=== PATIENT | male | born 1985 | race Caucasian/White ===

== ENCOUNTER 2017-07-11 03:08 | Emergency (ER) | payer SELFPAY ==
[2017-07-11 04:06] LABS: Absolute Lymphocytes (CBC) 2.4 K/uL (0.7-4.9); Absolute Monocytes 0.5 K/uL (0.1-1.3); Absolute Neutrophil 7.2 K/uL (1.8-8.0); Basophils % 0.8 % (0-1.3); Eosinophils % 7.1 % (0-4.4); Hematocrit 42.1 % (39.6-49.0); Lymphocytes % 21.9 % (15.3-44.8); MCH 26.2 pg (27.0-35.0); MCV 80.2 fL (80-100); MPV 7.5 fL (7.6-11.3); Monocytes % 4.4 % (3.3-12.3); RBC Red Blood Cell Count 5.25 M/uL (4.33-5.43)
[2017-07-11 04:16] LABS: Protime INR 1.08
[2017-07-11 04:29] LABS: Bicarbonate 29 mEq/L (21-31); Glucose Level 125 mg/dL (65-120); Potassium 3.6 mEq/L (3.6-5.0); Sodium Level 138 mEq/L (135-145)
[2017-07-11 04:35] LABS: ALT/SGPT 72 IU/L (10-60); AST/SGOT 46 IU/L (10-42); Albumin 4.3 g/dL (3.2-5.5); Alkaline Phosphatase 58 IU/L (42-121); BUN Blood Urea Nitrogen 17 mg/dL (6-20); Bilirubin Direct 0.1 mg/dL (0-0.2); Bilirubin Total 0.2 mg/dL (0.3-1.2); Creatine Phosphokinase 136 IU/L (22-269); Magnesium 1.7 mg/dL (1.8-2.5); Protein, Total 8.2 g/dL (6.0-8.3)
[2017-07-11 04:38] LABS: CKMB Creatine Kinase MB 1.5 ng/ml (0.3-4.0)
[2017-07-11 05:18] LABS: Barbiturates NEGATIVE; Benzodiazepines NEGATIVE; Cocaine NEGATIVE; METHAMPHETAM NEGATIVE; Opiates NEGATIVE; Phencyclidine NEGATIVE; THC Cannibis NEGATIVE
[2017-07-11] MEDS ORDERED: MAGNESIUM OXIDE 400 MG TAB ONE (05:31)
--- NOTE | 2017-07-11 05:32 | ER ---
Nurse's Notes [facility] Name: Alexis Velasco Age: 32 yrs Sex: Male : 1985 Arrival Date: 07/11/2017 Time: 03:12 Bed 20 Private MD: Diagnosis: Chest pain. Numbness fingers both hands. Morbid obesity Presentation: 07/11 03:15 Presenting complaint: Patient states: that since he has been having chest pain fc to the left side that does not radiate, it is on and off pain that only lasts seconds when it comes. Denies any shortness of breath, nausea or vomiting. Has left hand numbness since May and right hand numbness since June. Transition of care: patient was not received from another setting of care. Onset of symptoms was May 2017. Initial Sepsis Screen: Does the patient meet any 2 criteria? HR > 90 bpm. Yes Does the patient have a suspected source of infection? No. Patient's initial sepsis screen is negative. Care prior to arrival: Medication(s) given: ASA, 81 mg, x 1, at 0100. 03:15 Method Of Arrival: Ambulatory fc 03:15 Acuity: NOEMI 3 fc - Immunization history:: Last tetanus immunization: unknown. - Social history:: Smoking status: Patient/guardian denies using tobacco, the patient reports quitting approximately 1 years ago. Screenin:32 Abuse screen: Denies threats or abuse. Nutritional screening: No deficits noted. fc Tuberculosis screening: No symptoms or risk factors identified. Fall Risk None identified. Assessment: 03:25 General: Appears in no apparent distress. uncomfortable, Behavior is calm, cooperative, jd3 appropriate for age. Pain: Complains of pain in chest Pain does not radiate. Quality of pain is described as sharp, Pain began suddenly, Is intermittent. Neuro: Level of Consciousness is awake, alert, obeys commands, Oriented to person, place, time, situation. Cardiovascular: Heart tones S1 S2 present. Respiratory: Airway is patent Respiratory effort is even, unlabored, Respiratory pattern is regular, symmetrical, Breath sounds are clear bilaterally. GI: Abdomen is round Bowel sounds present X 4 quads. Patient currently denies diarrhea, nausea, vomiting. : No signs and/or symptoms were reported regarding the genitourinary system. EENT: No signs and/or symptoms were reported regarding the EENT system. Derm: Skin is intact, Skin is dry, Skin is normal, Skin temperature is warm. Musculoskeletal: Circulation, motion, and sensation intact. Range of motion: intact in all extremities. 04:21 Reassessment: Patient appears in no apparent distress at this time. Patient and/or jd3 family updated on plan of care and expected duration. Pain level reassessed. Patient is alert, oriented x 3, equal unlabored respirations, skin warm/dry/pink. 05:13 Reassessment: Patient appears in no apparent distress at this time. Patient and/or jd3 family updated on plan of care and expected duration. Pain level reassessed. Patient is alert, oriented x 3, equal unlabored respirations, skin warm/dry/pink. 05:42 Reassessment: Patient appears in no apparent distress at this time. Patient and/or jd3 family updated on plan of care and expected duration. Pain level reassessed. Patient is alert, oriented x 3, equal unlabored respirations, skin warm/dry/pink. pt reporting understanding of discharge instructions, even and steady gait upon discharge. Vital Signs: 03:15 BP 133 / 77; Pulse 94; Resp 20; Temp 98.0(O); Pulse Ox 97% on R/A; Weight 165.56 kg fc (R); Height 5 ft. 9 in. (175.26 cm) (R); Pain 4/10; 04:21 BP 119 / 69; Pulse 93; Resp 20 S; Pulse Ox 95% on R/A; jd3 05:13 BP 108 / 58; Pulse 74; Resp 19 S; Pulse Ox 94% on R/A; jd3 03:15 Body Mass Index 53.90 (165.56 kg, 175.26 cm) ED Course: 03:12 Patient arrived in ED. al2 03:15 Arm band placed on Patient placed in an exam room, on a stretcher. fc 03:15 Patient has correct armband on for positive identification. Bed in low position. Call light in reach. child monitor on. Pulse ox on. NIBP on. 03:25 Simone Kasper RN is Primary Nurse. jd3 03:31 Triage completed. fc 03:35 Inserted saline lock: 20 gauge in right antecubital area, using aseptic technique. ea Blood collected. 03:36 Jono Gallegos MD is Attending Physician. pkl 04:18 X-ray completed. Portable x-ray completed in exam room. Patient tolerated procedure jw2 well. 04:20 XRAY Chest (1 view) In Process Unspecified. EDMS 04:21 Patient maintains SpO2 saturation greater than 95% on room air. jd3 05:41 No provider procedures requiring assistance completed. IV discontinued, intact, jd3 bleeding controlled, No redness/swelling at site. Pressure dressing applied. Administered Medications: 05:32 Drug: Magnesium Oxide 400 mg Route: PO; jd3 05:32 Follow up: Response: Medication administered at discharge. jd3 Outcome: 05:32 Discharge ordered by . pkl 05:41 Discharged to home ambulatory, with family. jd3 05:41 Condition: stable 05:41 Discharge instructions given to patient, family, Instructed on discharge instructions, follow up and referral plans. medication usage, Demonstrated understanding of instructions, follow-up care, medications, Prescriptions given X 1. 05:42 Patient left the ED. jd3 Signatures: Dispatcher [employer] EDMS Jono Gallegos MD MD pkl Lurdes Santos, RN RN Kiara Angeles jw2 Elisabeth Cordero RN Simone Carmona ea, RN RN dipti Kruger, Rosemary al2
--- NOTE | 2017-07-11 05:33 | EDPHYS ---
Physician Documentation [facility] Name: Alexis Velasco Age: 32 yrs Sex: Male : 1985 Arrival Date: 07/11/2017 Time: 03:12 Bed 20 Private MD: ED Physician Jono Galleogs HPI: 07/11 03:57 This 32 yrs old Male presents to ER via Ambulatory with complaints of Chest pkl Pain, Numbness Of Hand. 03:57 The patient or guardian reports chest pain that is located primarily in the left side pkl chest. The pain does not radiate. Associated signs and symptoms: Pertinent positives: numbness fingers both hands. The chest pain is described as dull. - Immunization history:: Last tetanus immunization: unknown. - Social history:: Smoking status: Patient/guardian denies using tobacco, the patient reports quitting approximately 1 years ago. ROS: 04:09 Eyes: Negative for injury, pain, redness, and discharge, ENT: Negative for injury, pkl pain, and discharge, Neck: Negative for injury, pain, and swelling. 04:09 Cardiovascular: Positive for chest pain. 04:09 Respiratory: Negative for cough, shortness of breath. 04:09 Abdomen/GI: Negative for abdominal pain, nausea, vomiting, and diarrhea. 04:09 Back: Negative for acute changes. 04:09 : Negative for urinary symptoms. 04:09 MS/extremity: Negative for acute changes. 04:09 Skin: Negative for rash. 04:09 Neuro: Negative for altered mental status. Exam: 04:09 Head/Face: Normocephalic, atraumatic. Eyes: Pupils equal round and reactive to light, pkl extra-ocular motions intact. Lids and lashes normal. Conjunctiva and sclera are non-icteric and not injected. Cornea within normal limits. Periorbital areas with no swelling, redness, or edema. ENT: Nares patent. No nasal discharge, no septal abnormalities noted. Tympanic membranes are normal and external auditory canals are clear. Oropharynx with no redness, swelling, or masses, exudates, or evidence of obstruction, uvula midline. Mucous membranes moist. Neck: Trachea midline, no thyromegaly or masses palpated, and no cervical lymphadenopathy. Supple, full range of motion without nuchal rigidity, or vertebral point tenderness. No Meningismus. Chest/axilla: Normal chest wall appearance and motion. Nontender with no deformity. No lesions are appreciated. Cardiovascular: Regular rate and rhythm with a normal S1 and S2. No gallops, murmurs, or rubs. Normal PMI, no JVD. No pulse deficits. Respiratory: Lungs have equal breath sounds bilaterally, clear to auscultation and percussion. No rales, rhonchi or wheezes noted. No increased work of breathing, no retractions or nasal flaring. 04:09 Abdomen/GI: Inspection: obese Bowel sounds: normal, Palpation: abdomen is soft and non-tender, in all quadrants. 04:09 Back: Exam negative for acute changes. 04:09 : Exam negative for acute changes. 04:09 Musculoskeletal/extremity: Exam is negative for acute changes. 04:09 Skin: Exam negative for rash. 04:09 Neuro: Orientation: is normal, Mentation: is normal, Memory: is normal, Cranial nerves: grossly normal, Cerebellar function: is grossly normal, Motor: is normal, Sensation: numbness, that is mild, of the fingers both hands, Gait: is steady. Vital Signs: 03:15 BP 133 / 77; Pulse 94; Resp 20; Temp 98.0(O); Pulse Ox 97% on R/A; Weight 165.56 kg fc (R); Height 5 ft. 9 in. (175.26 cm) (R); Pain 4/10; 04:21 BP 119 / 69; Pulse 93; Resp 20 S; Pulse Ox 95% on R/A; jd3 05:13 BP 108 / 58; Pulse 74; Resp 19 S; Pulse Ox 94% on R/A; jd3 03:15 Body Mass Index 53.90 (165.56 kg, 175.26 cm) MDM: 03:36 Patient medically screened. pkl 05:29 Data reviewed: vital signs, nurses notes, lab test result(s), EKG, radiologic studies, pkl plain films. 07/11 03:51 Order name: Basic Metabolic Panel; Complete Time: 05:25 jd3 07/11 03:51 Order name: BNP; Complete Time: 05:25 jd3 07/11 03:51 Order name: CBC with Diff; Complete Time: 05:25 jd3 07/11 03:51 Order name: Ckmb; Complete Time: 05:25 jd3 07/11 03:51 Order name: CPK; Complete Time: 05:25 jd3 07/11 03:51 Order name: LFT's; Complete Time: 05:25 jd3 07/11 03:51 Order name: Magnesium; Complete Time: 05:25 jd3 07/11 03:51 Order name: PT-INR; Complete Time: 05:25 jd3 07/11 03:51 Order name: Ptt, Activated; Complete Time: 05:25 jd3 07/11 03:51 Order name: Troponin (emerg Dept Use Only); Complete Time: 05:25 jd3 07/11 03:55 Order name: UDS; Complete Time: 05:25 pkl 07/11 04:03 Order name: D-Dimer; Complete Time: 05:25 EDMS 07/11 04:40 Order name: Urine Dipstick--Ancillary (enter results) em1 07/11 03:51 Order name: XRAY Chest (1 view) jd3 07/11 03:51 Order name: EKG; Complete Time: 03:51 jd3 07/11 03:51 Order name: Cardiac monitoring; Complete Time: 03:51 jd3 07/11 03:51 Order name: EKG - Nurse/Tech; Complete Time: 03:51 jd3 07/11 03:51 Order name: IV Saline Lock; Complete Time: 03:51 jd3 07/11 03:51 Order name: Labs collected and sent; Complete Time: 03:52 jd3 07/11 03:51 Order name: O2 Per Protocol; Complete Time: 03:52 jd3 07/11 03:51 Order name: O2 Sat Monitoring; Complete Time: 03:52 jd3 07/11 03:51 Order name: Urine Dipstick-Ancillary (obtain specimen); Complete Time: 04:37 jd3 Administered Medications: 05:32 Drug: Magnesium Oxide 400 mg Route: PO; jd3 05:32 Follow up: Response: Medication administered at discharge. jd3 Disposition: 07/11/17 05:32 Discharged to Home. Impression: Chest pain. Numbness fingers both hands. Morbid obesity. - Condition is Stable. - Prescriptions for Ultram 50 mg Oral Tablet - take 1 tablet by ORAL route every 8 hours As needed; 20 tablet. - Medication Reconciliation Form, Thank You Letter, Antibiotic Education, Prescription Opioid Use, Work release form form. - Follow up: Private Physician; When: 2 - 3 days; Reason: Re-evaluation by your physician. - Problem is new. - Symptoms have improved. Signatures: Dispatcher [employer] [facility] Jono Gallegos MD MD pkl Chretien, Felicia, RN RN fc Simone Kasper RN RN jd3 Corrections: (The following items were deleted from the chart) 04:02 03:56 D-DIMER+COAG.LAB.BRZ ordered. [facility] 05:42 05:32 07/11/2017 05:32 Discharged to Home. Impression: Chest pain. Numbness fingers jd3 both hands. Morbid obesity. Condition is Stable. Forms are Medication Reconciliation Form, Thank You Letter, Antibiotic Education, Prescription Opioid Use. Follow up: Private Physician; When: 2 - 3 days; Reason: Re-evaluation by your physician. Problem is new. Symptoms have improved. pkl
--- NOTE | 2017-07-11 05:46 | EKG ---
Test Date: 2017-07-11 Test Time: 03:38:13 Clammer: VALERIE MEASUREMENT RESULTS: Intervals: Rate: 82 OR: 146 QRSD: 96 QT: 342 QTc: 399 Sunspot: P: 5 OR: 146 QRS: 10 T: 33 INTERPRETIVE STATEMENTS: Normal sinus rhythm with sinus arrhythmia Incomplete right bundle branch block Borderline ECG No previous ECG available for comparison Electronically Signed On 07-11-17 05:46:17 CDT by Bhupendra Schwartz
[2017-07-11 05:47] LABS: Urine Blood TRACE (NEG); Urine Glucose NEGATIVE (NEG); Urine Protein NEGATIVE (NEG); Urine Specific Gravity 1.025 (1.005-1.030); Urine pH 5.5 (5.0-7.0)
--- NOTE | 2017-07-11 12:50 | RAD REPORT ---
EXAM DESCRIPTION: RAD - Chest Single View - 07/11/2017 4:20 am CLINICAL HISTORY: Chest pain. COMPARISON: None. FINDINGS: Portable technique limits examination quality. The lungs are grossly clear. The heart is normal in size. No displaced fractures. IMPRESSION: No acute intrathoracic process suspected.
== END 2017-07-11 05:42 | disposition home or self-care (01) ==
LOC: ER 03:08
DX: R20.0 Anesthesia of skin (principal); E66.01 Morbid (severe) obesity due to excess calories; Z87.891 Personal history of nicotine dependence
CPT/HCPCS: 36415; 71045; 80048; 80076; 80307; 81003; 82550; 82553; 83735; 83880; 84484; 85025; 85379; 85610; 85730; 93005; 99285

== ENCOUNTER 2019-03-21 22:51 | Emergency (ER) | payer SELFPAY ==
--- OUTSIDE RECORDS SUMMARY | 2019-03-21 22:53 | XMS REPORT ---
:1985 [facility] Address [address] [place] [address] [address] [place] [address] Care Team Providers Name Role Phone Unavailable Unavailable Unavailable Problems This patient has no known problems. Allergies, Adverse Reactions, Alerts This patient has no known allergies or adverse reactions. Medications This patient has no known medications.
[2019-03-22 00:05] LABS: Absolute Lymphocytes (CBC) 2.4 K/uL (0.7-4.9); Basophils % 0.6 % (0-1.3); Hematocrit 39.2 % (39.6-49.0); Lymphocytes % 22.9 % (15.3-44.8); MPV 7.3 fL (7.6-11.3); Protime INR 1.07
[2019-03-22 00:23] LABS: ALT/SGPT 66 U/L (12-78); AST/SGOT 30 U/L (15-37); Albumin 3.6 g/dL (3.4-5.0); Alkaline Phosphatase 62 U/L (45-117); BUN Blood Urea Nitrogen 14 mg/dL (7-18); Bicarbonate 28 mmol/L (21-32); Bilirubin Direct < 0.1 mg/dL (0-0.2); Bilirubin Total 0.2 mg/dL (0.2-1.0); Glucose Level 121 mg/dL (74-106); Magnesium 2.1 mg/dL (1.8-2.4); Potassium 3.9 mmol/L (3.5-5.1); Protein, Total 7.8 g/dL (6.4-8.2); Sodium Level 139 mmol/L (136-145); Troponin (Emerg Dept Use Only) < 0.02 ng/mL (0.0-0.045)
[2019-03-22 00:25] LABS: NT PRO-BNP < 5 pg/mL (<125)
--- NOTE | 2019-03-22 00:34 | ER ---
Nurse's Notes [facility] Name: Alexis Velasco Age: 33 yrs Sex: Male : 1985 Arrival Date: 03/21/2019 Time: 22:53 Bed 5 Private MD: Diagnosis: Shortness of breath Presentation: 03/21 23:04 Presenting complaint: Patient states: he has been feeling short of breath all day then bb tonight when he was trying to go to sleep his heart started racing and "everything was pounding" he has had similar symptoms in the past but has not been seen for them he is also c/o of mouth and eye dryness. Transition of care: patient was not received from another setting of care. Onset of symptoms was March 21, 2019. Risk Assessment: Do you want to hurt yourself or someone else? Patient reports no desire to harm self or others. Initial Sepsis Screen: Does the patient meet any 2 criteria? No. Patient's initial sepsis screen is negative. Does the patient have a suspected source of infection? No. Patient's initial sepsis screen is negative. Care prior to arrival: None. 23:04 Method Of Arrival: Ambulatory bb 23:04 Acuity: NOEMI 3 bb Triage Assessment: 03/22 00:30 General: Appears in no apparent distress. comfortable. Respiratory: Reports shortness rv of breath at rest Onset: The symptoms/episode began/occurred gradually, the patient has mild shortness of breath. 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 - Social history:: Smoking status: Patient/guardian denies using tobacco. - Ebola Screening: : No symptoms or risks identified at this time. Screenin:53 Abuse screen: Denies threats or abuse. Nutritional screening: No deficits noted. ea Tuberculosis screening: No symptoms or risk factors identified. Fall Risk None identified. Assessment: 23:53 General: Appears in no apparent distress. Behavior is calm, cooperative, appropriate ea for age. Pain: Denies pain. Neuro: Level of Consciousness is awake, alert, obeys commands, Oriented to person, place, time, situation. Cardiovascular: Patient's skin is warm and dry. Respiratory: Airway is patent Respiratory effort is even, unlabored, Respiratory pattern is regular, symmetrical. Derm: Skin is pink, warm \\T\\ dry. 03/22 00:29 Reassessment: Patient and/or family updated on plan of care and expected duration. Pain ea level reassessed. Patient is alert, oriented x 3, equal unlabored respirations, skin warm/dry/pink. 00:30 Respiratory: Breath sounds are clear bilaterally. rv 00:30 Cardiovascular: Rhythm is regular. rv 00:47 Reassessment: Patient and/or family updated on plan of care and expected duration. Pain ea level reassessed. Patient is alert, oriented x 3, equal unlabored respirations, skin warm/dry/pink. Pt left ED ambulatory accompanied by family. Pt left ED ambulatory accompanied by family. Vital Signs: 03/21 23:06 BP 128 / 58; Pulse 83; Resp 16 S; Temp 98.6(O); Pulse Ox 97% on R/A; Weight 181.44 kg bb (R); Height 5 ft. 10 in. (177.80 cm) (R); Pain 0/10; 23:30 BP 111 / 67; Pulse 80; Resp 27; Pulse Ox 95% on R/A; rv 03/22 00:00 BP 120 / 75; Pulse 82; Resp 16; Pulse Ox 98% on R/A; rv 00:15 BP 108 / 62; Pulse 82; Resp 14; Pulse Ox 95% on R/A; rv 03/21 23:06 Body Mass Index 57.39 (181.44 kg, 177.80 cm) bb ED Course: 03/21 22:53 Patient arrived in ED. cl3 22:57 Luke Correia PA is PHCP. jr8 22:57 Manuel Carney MD is Attending Physician. jr8 23:06 Triage completed. bb 23:06 Arm band placed on Patient placed in an exam room, on a stretcher, on physician obstetrician, bb on pulse oximetry. Family accompanied patient. 23:51 Elisabeth Cordero, RN is Primary Nurse. ea 23:51 Patient has correct armband on for positive identification. Placed in gown. Bed in low ea position. Call light in reach. 23:51 Inserted saline lock: 22 gauge in right antecubital area, using aseptic technique. ea Blood collected. 03/22 00:03 XRAY Chest (1 view) In Process Unspecified. EDMS 00:30 No provider procedures requiring assistance completed. rv 00:40 IV discontinued, intact, bleeding controlled, No redness/swelling at site. Pressure ea dressing applied. Administered Medications: No medications were administered Outcome: 00:33 Discharge ordered by MD. michael 00:49 Discharged to home ambulatory, with significant other. ea 00:49 Condition: stable 00:49 Discharge instructions given to patient, Instructed on discharge instructions, follow up and referral plans. Demonstrated understanding of instructions. 00:50 Patient left the ED. ea Signatures: Dispatcher [employer] EDMS Calli Gupta RN RN Luke Wren PA PA jr8 Antunez, Elena RN Angelo Hurd ea RN RN Anneliese Miramontes cl3
--- NOTE | 2019-03-22 00:34 | EDPHYS ---
Physician Documentation [facility] Name: Alexis Velasco Age: 33 yrs Sex: Male : 1985 Arrival Date: 03/21/2019 Time: 22:53 Bed 5 Private MD: ED Physician Manuel Carney HPI: 03/21 23:58 This 33 yrs old Male presents to ER via Ambulatory with complaints of jr8 Shortness Of Breath, Nausea. 23:58 The patient has shortness of breath at rest, with light activity. Onset: The jr8 symptoms/episode began/occurred acutely, yesterday. Duration: The symptoms are continuous. The patient's shortness of breath is aggravated by walking. Associated signs and symptoms: Pertinent positives: dry mouth and eyes. Severity of symptoms: At their worst the symptoms were mild in the emergency department the symptoms are unchanged. The patient has not experienced similar symptoms in the past. The patient has not recently seen a physician. 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 - Social history:: Smoking status: Patient/guardian denies using tobacco. - Ebola Screening: : No symptoms or risks identified at this time. ROS: 23:58 Eyes: Negative for injury, pain, redness, and discharge, ENT: Negative for injury, jr8 pain, and discharge, Neck: Negative for injury, pain, and swelling, Cardiovascular: Negative for chest pain, palpitations, and edema, Abdomen/GI: Negative for abdominal pain, nausea, vomiting, diarrhea, and constipation, Back: Negative for injury and pain, MS/Extremity: Negative for injury and deformity, Skin: Negative for injury, rash, and discoloration, Neuro: Negative for headache, weakness, numbness, tingling, and seizure. 23:58 Respiratory: Positive for dyspnea on exertion, shortness of breath. Exam: 23:58 Eyes: Pupils equal round and reactive to light, extra-ocular motions intact. Lids and jr8 lashes normal. Conjunctiva and sclera are non-icteric and not injected. Cornea within normal limits. Periorbital areas with no swelling, redness, or edema. ENT: Nares patent. No nasal discharge, no septal abnormalities noted. Tympanic membranes are normal and external auditory canals are clear. Oropharynx with no redness, swelling, or masses, exudates, or evidence of obstruction, uvula midline. Mucous membranes moist. Neck: Trachea midline, no thyromegaly or masses palpated, and no cervical lymphadenopathy. Supple, full range of motion without nuchal rigidity, or vertebral point tenderness. No Meningismus. Cardiovascular: Regular rate and rhythm with a normal S1 and S2. No gallops, murmurs, or rubs. Normal PMI, no JVD. No pulse deficits. 1+ lower extremity edema noted bilaterally Respiratory: Lungs have equal breath sounds bilaterally, clear to auscultation and percussion. No rales, rhonchi or wheezes noted. No increased work of breathing, no retractions or nasal flaring. Abdomen/GI: Soft, non-tender, with normal bowel sounds. No distension or tympany. No guarding or rebound. No evidence of tenderness throughout. Back: No spinal tenderness. No costovertebral tenderness. Full range of motion. Skin: Warm, dry with normal turgor. Normal color with no rashes, no lesions, and no evidence of cellulitis. MS/ Extremity: Pulses equal, no cyanosis. Neurovascular intact. Full, normal range of motion. Neuro: Awake and alert, GCS 15, oriented to person, place, time, and situation. Cranial nerves II-XII grossly intact. Motor strength 5/5 in all extremities. Sensory grossly intact. Cerebellar exam normal. Normal gait. Vital Signs: 23:06 BP 128 / 58; Pulse 83; Resp 16 S; Temp 98.6(O); Pulse Ox 97% on R/A; Weight 181.44 kg bb (R); Height 5 ft. 10 in. (177.80 cm) (R); Pain 0/10; 23:30 BP 111 / 67; Pulse 80; Resp 27; Pulse Ox 95% on R/A; rv 03/22 00:00 BP 120 / 75; Pulse 82; Resp 16; Pulse Ox 98% on R/A; rv 00:15 BP 108 / 62; Pulse 82; Resp 14; Pulse Ox 95% on R/A; rv 03/21 23:06 Body Mass Index 57.39 (181.44 kg, 177.80 cm) bb MDM: 03/21 22:57 Patient medically screened. 03/22 00:30 Differential diagnosis: Anemia Anxiety Reaction Myocardial Infarction pneumonia, jr8 pulmonary edema, Pulmonary Embolism Unstable Angina Congestive Heart Failure, Hyperglycemia, Thyroid dysfunction, Sleep Apnea, Morbid Obesity. Data reviewed: vital signs, nurses notes, lab test result(s), EKG, radiologic studies, plain films. Data interpreted: Pulse oximetry: on room air is 95 %. Interpretation: normal. Counseling: I had a detailed discussion with the patient and/or guardian regarding: the historical points, exam findings, and any diagnostic results supporting the discharge/admit diagnosis, lab results, radiology results, the need for outpatient follow up, a family practitioner, to return to the emergency department if symptoms worsen or persist or if there are any questions or concerns that arise at home. 03/21 23:26 Order name: Basic Metabolic Panel [facility] 03/21 23:26 Order name: CBC with Diff [facility] 03/21 23:26 Order name: LFT's [facility] 03/21 23:26 Order name: Magnesium; Complete Time: 00:27 [facility] 03/21 23:26 Order name: NT PRO-BNP; Complete Time: 00:27 [facility] 03/21 23:26 Order name: PT-INR; Complete Time: 00:13 [facility] 03/21 23:26 Order name: Troponin (emerg Dept Use Only); Complete Time: 00:27 03/21 23:26 Order name: XRAY Chest (1 view) [facility] 03/21 23:26 Order name: EKG; Complete Time: 23:27 [facility] 03/21 23:26 Order name: Cardiac monitoring; Complete Time: 23:51 03/21 23:26 Order name: TSH; Complete Time: 00:27 03/21 23:27 Order name: Basic Metabolic Panel; Complete Time: 00:27 [facility] 03/21 23:27 Order name: CBC with Automated Diff; Complete Time: 00:13 [facility] 03/21 23:27 Order name: Liver (Hepatic) Function; Complete Time: 00:27 [facility] 03/21 23:26 Order name: EKG - Nurse/Tech; Complete Time: 23:50 03/21 23:26 Order name: IV Saline Lock; Complete Time: 23:50 03/21 23:26 Order name: Labs collected and sent; Complete Time: 23:50 03/21 23:26 Order name: O2 Per Protocol; Complete Time: 23:50 03/21 23:26 Order name: O2 Sat Monitoring; Complete Time: 23:50 03/21 23:26 Order name: Glucose Level; Complete Time: 23:51 jr8 Administered Medications: No medications were administered Disposition: 05:45 Co-signature as Attending Physician, Manuel Carney MD I agree with the assessment and tw4 plan of care. Disposition: 03/22/19 00:33 Discharged to Home. Impression: Shortness of breath. - Condition is Stable. - Discharge Instructions: Shortness of Breath. - Medication Reconciliation Form, Thank You Letter, Antibiotic Education, Prescription Opioid Use, Work release form form. - Follow up: Private Physician; When: 2 - 3 days; Reason: Recheck today's complaints, Continuance of care, Re-evaluation by your physician. - Problem is new. - Symptoms have improved. Signatures: Dispatcher [employer] EDCalli Morin, RN RN Luke Wren PA PA jr8 Elisabeth Cordero RN Manuel Olguin ea, MD MD tw4 Corrections: (The following items were deleted from the chart) 00:50 00:33 03/22/2019 00:33 Discharged to Home. Impression: Shortness of breath. Condition ea is Stable. Forms are Medication Reconciliation Form, Thank You Letter, Antibiotic Education, Prescription Opioid Use. Follow up: Private Physician; When: 2 - 3 days; Reason: Recheck today's complaints, Continuance of care, Re-evaluation by your physician. Problem is new. Symptoms have improved. jr8
[2019-03-22 01:06] VITALS: TEMP 98.6
[2019-03-22 01:10] VITALS: BP 108/62; O2SAT 95
--- NOTE | 2019-03-22 07:44 | EKG ---
Test Date: 2019-03-21 Test Time: 23:44:22 Art Specialist: BRIAN MEASUREMENT RESULTS: Intervals: Rate: 73 MA: 144 QRSD: 100 QT: 366 QTc: 403 Seaview: P: 32 MA: 144 QRS: 12 T: 25 INTERPRETIVE STATEMENTS: Sinus rhythm Incomplete right bundle branch block Otherwise normal ECG Compared to ECG 07/11/2017 03:38:13 no significant change from previous ECG Electronically Signed On 03-22-19 07:44:10 TAPE TRANSFERRER by Bhupendra Schwartz
--- NOTE | 2019-03-22 08:40 | RAD REPORT ---
EXAM DESCRIPTION: RAD - Chest Single View - 03/22/2019 12:03 am CLINICAL HISTORY: DYSPNEA Chest pain. COMPARISON: Chest Single View dated 07/11/2017 FINDINGS: Portable technique limits examination quality. The lungs are grossly clear. The heart is mildly enlarged in size. No displaced fractures. IMPRESSION: No acute intrathoracic process suspected.
== END 2019-03-22 00:50 | disposition home or self-care (01) ==
LOC: ER 22:51
DX: R06.02 Shortness of breath (principal)
CPT/HCPCS: 36415; 71045; 80048; 80076; 83735; 83880; 84443; 84484; 85025; 85610; 93005; 99284

== ENCOUNTER 2024-01-27 17:24 | Emergency (ER) | payer SELFPAY ==
--- OUTSIDE RECORDS SUMMARY | 2024-01-27 17:26 | XMS REPORT | Continuity of Care Document ---
Author Name Unknown Address [address] [facility] [address] [facility] Address [address] [facility] [address] [place] [address] Care Team Providers Care Cro Name Role Phone Tomek_T Attending Clinician Unavailable Tomek_T Admitting Clinician Unavailable Payers Payer Name Policy Type Policy Number Effective Date Expirati on Date Source Problems Condition Name Condition Details Condition Category Status Onset Date Resolution Date Last Treatment Date Treating Clinician Comments Source Sleep apnea Sleep Apnea Problem Active 06-13 00:00: 00 [facility] Acute constipati on Acute Constipati on Problem Active [facility] Social History Smoking Status Start Date Stop Date Source Current Every Day Smoker [facility] Medications Ordered Medication Name Filled Medication Name Start Date Stop Date Current Medication? Ordering Clinician Indication Dosage Frequency Signature (SIG) Comments Components Source pantoprazol e 40 mg tablet,miriam yed release Take 1 tablet every day by oral route for 90 days. pantoprazol e 40 mg tablet,miriam yed release Take 1 tablet every day by oral route for 90 days. No 1 Q1D pantoprazo le 40 mg tablet,del ayed release Take 1 tablet every day by oral route for 90 days. [facility] Vital Signs Vital Name Observation Time Observation Value Comments S ource BP Diastolic 2023-06-14 00:00:00 85 mm[Hg] [facility] Body Weight 2023-06-14 00:00:00 6240 [oz_av] [facility] Height 2023-06-14 00:00:00 69 [in_i] [facility] BMI (Body Mass Index) 2023-06-14 00:00:00 57.6 kg/m2 [facility] dical [facility] BP Systolic 2023-06-14 00:00:00 136 mm[Hg] [facility] Encounters Start Date/Time End Date/Time Encounter Type Admission Type Attending [facility] Care Facility Care Department Encounter ID Source 2023-06-14 00:00:00 2023-06-14 00:00:00 Miguel Quevedo MD: [address] [place] [address], [address], [place] [address] , Ph. [facility] [id number] [facility]
[2024-01-27] MEDS ORDERED: ASPIRIN 81 MG CHEWABLE TABLET ONE (17:43)
[2024-01-27 18:06] LABS: Absolute Basophils 0.1 K/uL (0-0.5); Absolute Eosinophils 0.6 K/uL (0-0.5); Absolute Monocytes 0.7 K/uL (0.1-1.3); Absolute Neutrophil 6.9 K/uL (1.8-8.0); Basophils % 0.7 % (0-1.3); Eosinophils % 5.5 % (0-4.4); Hematocrit 40.9 % (39.6-49.0); Hemoglobin 13.8 g/dL (13.6-17.9); Lymphocytes % 19.5 % (15.3-44.8); MCH 27.1 pg (27.0-35.0); MCHC 33.6 g/dL (32.0-36.0); MCV 80.5 fL (80-100); MPV 6.9 fL (7.6-11.3); Monocytes % 6.6 % (3.3-12.3); Neutrophils % 67.7 % (41.7-73.7); Platelets 322 thou/uL (152-406); RBC Red Blood Cell Count 5.08 M/uL (4.33-5.43)
[2024-01-27 18:10] LABS: PT Prothrombin Time 12.6 SECONDS (9.4-12.5); Protime INR 1.13
[2024-01-27 18:14] LABS: D-Dimer < 0.215 FEUug/mL (0-0.500)
[2024-01-27 18:27] LABS: ALT/SGPT 70 U/L (16-61); AST/SGOT 41 U/L (15-37); Albumin 3.4 g/dL (3.4-5.0); Albumin/Globulin Ratio 0.8 (1.1-1.8); Alkaline Phosphatase 62 U/L (45-117); Anion Gap 6.9 mEq/L (5.0-15.0); BUN Blood Urea Nitrogen 11 mg/dL (7-18); Bicarbonate 29 mEq/L (21-32); Bilirubin Total 0.2 mg/dL (0.2-1.0); Globulin 4.1 g/dL (2.3-3.5); Glomerular Filtration Rate 106 ml/min (=/>90); Glucose Level 113 mg/dL (74-106); Magnesium 1.8 mg/dL (1.6-2.4); Potassium 3.9 mEq/L (3.5-5.1); Protein, Total 7.5 g/dL (6.4-8.2); Sodium Level 140 mEq/L (136-145); Troponin High Sensitivity 3.6 pg/mL (<58.9)
[2024-01-27 18:29] LABS: Bilirubin Direct < 0.2 mg/dL (0-0.2)
--- NOTE | 2024-01-27 18:58 | RAD REPORT ---
EXAMINATION: ONE VIEW CHEST XR CLINICAL INDICATION: CHEST PAIN TECHNIQUE: Frontal chest projection is submitted. Examination is limited by patient positioning and t echnique. COMPARISON: 03/21/2019 FINDINGS: Mild interstitial pulmonary edema suspected. The heart is upper limit of normal in size. No displaced fractures identified. IMPRESSION: Mild CHF.
--- NOTE | 2024-01-27 20:13 | RAD REPORT ---
EXAMINATION: CTA CHEST CLINICAL INDICATION: left arm numbness;Chest pain TECHNIQUE: This examination was performed according to an angiographic protocol with 3D post-processi ng. This involves 3D reconstructions, MIPs, volume rendered images and/or shaded surface rendering. One or more of the following dose reduction techniques were used: Automated exposure control, adjustm ent of the mA and/or kV according to patient size, and/or iterative reconstruction. Unless otherwise specified, incidental findings do not require dedicated imaging follow-up. COMPARISON: No prior exam. FINDINGS: THORACIC AORTA: Normal caliber and configuration. PULMONARY ARTERIES: Normal caliber. No evidence of pulmonary emboli to the subsegmental level. LUNGS: No evidence of airspace or interstitial process. No nodules. PLEURA: No pleural effusion. No pneumothorax. MEDIASTINUM AND LYMPH NODES: No mediastinal mass or fluid collection. Normal size mediastinal, hilar, and axillary lymph nodes. OSSEOUS STRUCTURES AND CHEST WALL: Intact. UPPER ABDOMEN: Fatty liver. IMPRESSION: Unremarkable CTA of the chest.
--- NOTE | 2024-01-27 21:53 | ER ---
Nurse's Notes [facility] Name: Alexis Velasco Age: 38 yrs Sex: Male : 1985 Arrival Date: 01/27/2024 Time: 17:24 Bed 8 Private MD: Diagnosis: Chest pain, unspecified Presentation: 01/26 17:33 Chief complaint: Patient states: Chest discomfort that began at 1500 today and L arm ss numbness that began hours later with worsening chest pain. Coronavirus screen: Client denies travel out of the [place] in the last 14 days. Ebola Screen: Patient denies exposure to infectious person. Patient denies travel to an Ebola-affected area in the 21 days before illness onset. Initial Sepsis Screen: Does the patient meet any 2 criteria? No. Patient's initial sepsis screen is negative. Does the patient have a suspected source of infection? No. Patient's initial sepsis screen is negative. Risk Assessment: Do you want to hurt yourself or someone else? Patient reports no desire to harm self or others. Onset of symptoms was January 27, 2024 at 15:00. 17:33 Method Of Arrival: Ambulatory ss 17:33 Acuity: NOEMI 3 ss Historical: - Allergies: 17:34 No Known Allergies; ss - Home Meds: 17:34 None [Active]; ss - PMHx: 17:34 Sleep Apnea; ss - PSHx: 17:34 None; ss - Immunization history:: Client reports having NOT received the Covid vaccine. - Infectious Disease History:: Denies. - Social history:: Smoking status: Reported history of juuling and/or vaping. Screenin:06 [facility] ED Fall Risk Assessment (Adult) History of falling in the last 3 months, ph including since admission No falls in past 3 months (0 pts) Confusion or Disorientation No (0 pts) Intoxicated or Sedated No (0 pts) Impaired Gait No (0 pts) Mobility Assist Device Used No (0 pt) Altered Elimination No (0 pt) Score/Fall Risk Level 0 - 2 = Low Risk Oriented to surroundings, Maintained a safe environment, Hourly rounding (assess needs \T\ fall precautionary measures) done. Abuse screen: Denies threats or abuse. Denies injuries from another. Nutritional screening: No deficits noted. Tuberculosis screening: No symptoms or risk factors identified. Assessment: 18:05 General: Appears in no apparent distress. comfortable, obese, Behavior is calm, ph cooperative, appropriate for age. Pain: Complains of pain in chest Pain radiates to left arm Pain began 3 hours ago. Neuro: Level of Consciousness is awake, alert, obeys commands, Oriented to person, place, time, situation. Cardiovascular: Reports chest pain. Respiratory: Airway is patent Respiratory effort is even, unlabored, Respiratory pattern is regular, symmetrical. Derm: Skin is pink, warm \T\ dry. 18:37 Reassessment: Patient appears in no apparent distress at this time. No changes from jl7 previously documented assessment. Patient and/or family updated on plan of care and expected duration. Pain level reassessed. Patient is alert, oriented x 3, equal unlabored respirations, skin warm/dry/pink. Pain: Pain currently is 2 out of 10 on a pain scale. 19:15 General: Appears in no apparent distress. comfortable, Behavior is calm, cooperative. lg3 Pain: Denies pain. Neuro: No deficits noted. Benjamin Agitation-Sedation Scale (RASS): 0 - Alert and Calm Level of Consciousness is awake, alert, obeys commands, Oriented to person, place, time, situation. Cardiovascular: No deficits noted. Denies chest pain, shortness of breath, Capillary refill < 3 seconds Clubbing of nail beds is absent JVD is absent Patient's skin is warm and dry. GI: No deficits noted. No signs and/or symptoms were reported involving the gastrointestinal system. Abdomen is round non-distended, obese. : No signs and/or symptoms were reported regarding the genitourinary system. EENT: No deficits noted. No signs and/or symptoms were reported regarding the EENT system. Derm: No deficits noted. No signs and/or symptoms reported regarding the dermatologic system. Skin is intact, is healthy with good turgor, Skin is dry, Skin is normal, Skin temperature is warm. Musculoskeletal: No deficits noted. No signs and/or symptoms reported regarding the musculoskeletal system. Circulation, motion, and sensation intact. Range of motion: intact in all extremities, Denies numbness in, left arm. 22:01 Reassessment: Patient appears in no apparent distress at this time. No changes from bm8 previously documented assessment. Patient and/or family updated on plan of care and expected duration. Pain level reassessed. Patient is alert, oriented x 3, equal unlabored respirations, skin warm/dry/pink. Patient denies pain at this time. Patient states feeling better. Patient states symptoms have improved. Vital Signs: 17:52 Resp 19; Weight 157.4 kg; Height 5 ft. 9 in. ; Pain 1/10; ss 17:52 BP 140 / 91; Pulse Ox 97% on R/A; ss 18:30 BP 102 / 87 LA; jl7 18:36 BP 124 / 78 RA; Pulse 75; Resp 15; Pulse Ox 100% ; jl7 19:15 BP 116 / 74; Pulse 63; Resp 16; Pulse Ox 96% on R/A; Pain 0/10; lg3 22:01 BP 119 / 74; Pulse 68; Resp 17; Temp 98.1; Pulse Ox 96% ; Pain 0/10; bm8 17:52 Body Mass Index 51.24 (157.40 kg, 175.26 cm) ss 17:52 Pain Scale: Adult ss 19:15 Pain Scale: Adult lg3 22:01 Pain Scale: Adult bm8 Alban Coma Score: 22:01 Eye Response: spontaneous(4). Motor Response: obeys commands(6). Verbal Response: bm8 oriented(5). Total: 15. ED Course: 17:25 Patient arrived in ED. im 17:25 Hugo Taylor PA is PHCP. cp 17:25 Hugo Toussaint MD is Attending Physician. cp 17:34 Maral Clayton, ESTRELLA is Primary Nurse. jl7 17:34 Triage completed. ss 17:34 Arm band placed on right wrist. ss 17:56 Inserted saline lock: 20 gauge in left antecubital area, using aseptic technique. Blood rs6 collected. Flushed with 10 mL NS. 18:07 Patient has correct armband on for positive identification. Bed in low position. Call ph light in reach. Side rails up X 1. installation engineer on. Pulse ox on. NIBP on. 18:07 Patient maintains SpO2 saturation greater than 95% on room air. ph 18:43 XRAY Chest (1 view) In Process Unspecified. EDMS 19:15 Door closed. Noise minimized. Warm blanket given. Pillow given. Family accompanied lg3 patient. 19:17 Provided Education on: use of call munoz. jl7 20:08 CT Chest Angio In Process Unspecified. EDMS 20:47 EKG done, by ED staff, reviewed by Hugo TENORIO. oe 20:47 Troponin High Sensitivity Sent. oe 21:51 Mauri Gonzalez MD is Referral Physician. cp 22:01 No provider procedures requiring assistance completed. IV discontinued, intact, bm8 bleeding controlled, No redness/swelling at site. Pressure dressing applied. Administered Medications: 17:50 Drug: Aspirin PO Chewable Tablet 324 mg PO once; 81 mg tablets x 4 Route: PO; ph 18:37 Follow up: Response: No adverse reaction jl7 Medication: 18:07 VIS not applicable for this client. ph Outcome: 21:53 Discharge ordered by MD. cp 22:01 Discharged to home ambulatory, bm8 22:01 Condition: stable 22:01 Discharge instructions given to patient, family, Instructed on discharge instructions, follow up and referral plans. medication usage, safety practices, Demonstrated understanding of instructions, follow-up care, medications, 22:03 Patient left the ED. bm8 Signatures: Dispatcher [employer] EDWI Samantha Serrano RN RN Urszula Barraza, RN RN ph Hugo Taylor PA PA cp Eduar Lyle oe Maral Clayton RN RN jl7 Mercedez Olivera, RN RN lg3 Kierra Benson Brad RN RN bm8 Jama Velasco rs6 Corrections: (The following items were deleted from the chart) 17:34 17:34 Home Meds: Unable to obtain; ss
--- NOTE | 2024-01-27 21:53 | EDPHYS ---
Physician Documentation [facility] Name: Alexis Velasco Age: 38 yrs Sex: Male : 1985 Arrival Date: 01/27/2024 Time: 17:24 Bed 8 Private MD: LAURA Physician Hugo Toussaint HPI: 01/26 17:40 This 38 yrs old Male presents to ER via Ambulatory with complaints of Chest Pain, cp Numbness Of Arm - left. 17:40 The patient or guardian reports chest pain that is located primarily in the anterior cp chest wall, left. 17:40 The pain radiates to the left arm. Associated signs and symptoms: Pertinent positives: cp left arm numbness, Pertinent negatives: abdominal pain, cough, diaphoresis, lower extremity pain, lower extremity swelling, near syncope, shortness of breath, syncope. 17:40 The chest pain is described as a pressure. cp 17:40 Duration: The patient or guardian reports a single episode, that is still ongoing, but cp improving. Historical: - Allergies: 17:34 No Known Allergies; ss - Home Meds: 17:34 None [Active]; ss - PMHx: 17:34 Sleep Apnea; ss - PSHx: 17:34 None; ss - Immunization history:: Client reports having NOT received the Covid vaccine. - Infectious Disease History:: Denies. - Social history:: Smoking status: Reported history of juuling and/or vaping. ROS: 17:45 Cardiovascular: Positive for chest pain, cp 17:45 Neuro: Positive for numbness, of the left arm, Negative for altered mental status, cp dizziness, headache, weakness, 17:45 Eyes: Negative for injury, pain, redness, and discharge, cp 17:45 Constitutional: Negative for body aches, chills, fever, poor PO intake, 17:45 ENT: Negative for drainage from ear(s), ear pain, sore throat, difficulty swallowing, difficulty handling secretions, 17:45 Neck: Negative for pain with movement, pain at rest, stiffness, 17:45 Respiratory: Negative for cough, shortness of breath, wheezing, 17:45 Abdomen/GI: Negative for abdominal pain, nausea, vomiting, and diarrhea, 17:45 Back: Negative for pain at rest, pain with movement, 17:45 All other systems are negative, Exam: 17:50 Constitutional: The patient appears in no acute distress, alert, awake, cp non-diaphoretic, non-toxic, well developed, well nourished, obese, 17:50 Head/Face: Normocephalic, atraumatic. cp 17:50 Eyes: Periorbital structures: appear normal, Conjunctiva: normal, no exudate, no injection, Sclera: no appreciated abnormality, Lids and lashes: appear normal, bilaterally, 17:50 ENT: External ear(s): are unremarkable, Nose: is normal, Mouth: Lips: moist, Oral mucosa: pink and intact, moist, Posterior pharynx: Airway: no evidence of obstruction, patent, 17:50 Neck: ROM/movement: is normal, is supple, without pain, no range of motions limitations, 17:50 Chest/axilla: Inspection: normal, 17:50 Cardiovascular: Rate: normal, Rhythm: regular, 17:50 Respiratory: the patient does not display signs of respiratory distress, Respirations: normal, no use of accessory muscles, no retractions, labored breathing, is not present, Breath sounds: are clear throughout, no decreased breath sounds, no stridor, no wheezing, 17:50 Abdomen/GI: Inspection: obese Palpation: abdomen is soft and non-tender, in all quadrants, 17:50 Back: pain, is absent, ROM is normal, 17:50 Neuro: Orientation: to person, place \T\ time. Mentation: is normal, Motor: moves all fours, strength is normal, Sensation: no obvious gross deficits, 20:45 ECG was reviewed by the Attending Physician. cp Vital Signs: 17:52 Resp 19; Weight 157.4 kg; Height 5 ft. 9 in. ; Pain 1/10; ss 17:52 BP 140 / 91; Pulse Ox 97% on R/A; ss 18:30 BP 102 / 87 LA; jl7 18:36 BP 124 / 78 RA; Pulse 75; Resp 15; Pulse Ox 100% ; jl7 19:15 BP 116 / 74; Pulse 63; Resp 16; Pulse Ox 96% on R/A; Pain 0/10; lg3 22:01 BP 119 / 74; Pulse 68; Resp 17; Temp 98.1; Pulse Ox 96% ; Pain 0/10; bm8 17:52 Body Mass Index 51.24 (157.40 kg, 175.26 cm) ss 17:52 Pain Scale: Adult ss 19:15 Pain Scale: Adult lg3 22:01 Pain Scale: Adult bm8 [place] Coma Score: 22:01 Eye Response: spontaneous(4). Motor Response: obeys commands(6). Verbal Response: bm8 oriented(5). Total: 15. MDM: 17:26 Medical Screening Exam initiated raghav 18:00 Differential diagnosis: abnormal EKG, acute myocardial infarction, cholecystitis, cp Cholelithiasis costochondritis, pancreatitis, pleurisy, pneumonia, pneumothorax, stable angina, thoracic aortic disection, unstable angina. 21:52 Data reviewed: vital signs, nurses notes, lab test result(s), and as a result, I will cp discharge patient. 21:52 I considered the following discharge prescriptions or medication management in the emergency department Medications were administered in the Emergency Department. See MAR. 21:52 Care significantly affected by the following chronic conditions: Obesity. Counseling: I cp had a detailed discussion with the patient and/or guardian regarding the historical points, exam findings, and any diagnostic results supporting the discharge/admit diagnosis, lab results, radiology results, the need for outpatient follow up, a toe former, to return to the emergency department if symptoms worsen or persist or if there are any questions or concerns that arise at home. Response to treatment: the patient's symptoms have markedly improved after treatment, and as a result, I will discharge patient. Special discussion: Based on the patient's history, exam, and Dx evaluation, there is no indication for emergent intervention or inpatient Tx. It is understood by the patient/guardian that if the Sx's persist or worsen they need to return immediately for re-evaluation. 01/26 17:38 Order name: Basic Metabolic Panel; Complete Time: 18:36 01/26 18:36 Interpretation: Normal except: CL 108; GLUC 113. 01/26 17:38 Order name: CBC with Diff; Complete Time: 18:36 01/26 17:38 Order name: D-Dimer; Complete Time: 18:36 cp 01/26 17:38 Order name: LFT's; Complete Time: 18:36 01/26 17:38 Order name: Magnesium; Complete Time: 18:36 01/26 17:38 Order name: PT-INR; Complete Time: 18:36 01/26 17:38 Order name: Troponin HS; Complete Time: 18:36 cp 01/26 20:27 Order name: Troponin High Sensitivity; Complete Time: 21:19 cp 01/26 21:19 Interpretation: Reviewed. 01/26 17:38 Order name: XRAY Chest (1 view); Complete Time: 20:24 cp 01/26 18:37 Order name: CT Chest Angio; Complete Time: 20:24 cp 01/26 20:25 Interpretation: Report reviewed. 01/26 17:38 Order name: EKG; Complete Time: 17:39 cp 01/26 17:38 Order name: Blood Pressure Recheck: bilateral upper extremity; Complete Time: 18:36 cp 01/26 17:38 Order name: Cardiac monitoring; Complete Time: 17:40 cp 01/26 17:38 Order name: EKG - Nurse/Tech; Complete Time: 17:40 cp 01/26 17:38 Order name: IV Saline Lock; Complete Time: 17:57 cp 01/26 17:38 Order name: Labs collected and sent; Complete Time: 17:57 cp 01/26 17:38 Order name: O2 Per Protocol; Complete Time: 17:40 cp 01/26 17:38 Order name: O2 Sat Monitoring; Complete Time: 17:50 cp EC:45 Rate is 55 beats/min. Rhythm is regular. ND interval is normal. QRS interval is normal. cp QT interval is normal. T waves are Inverted in lead aVR. Interpreted by me. Reviewed by me. Administered Medications: 17:50 Drug: Aspirin PO Chewable Tablet 324 mg PO once; 81 mg tablets x 4 Route: PO; ph 18:37 Follow up: Response: No adverse reaction jl7 Disposition Summary: 01/27/24 21:53 Discharge Ordered Notes: Location: Home cp Problem: new cp Symptoms: have improved cp Condition: Stable cp Diagnosis - Chest pain, unspecified cp Followup: cp - With: Mauri Gonzalez MD - When: 5 - 6 days - Reason: chest pain Discharge Instructions: - Discharge Summary Sheet cp - Nonspecific Chest Pain, Adult cp - Aspirin and Your Heart cp Forms: - Work release form cp - Medication Reconciliation Form cp - Antibiotic Education cp - Prescription Opioid Use cp - Patient Portal Instructions cp - Leadership Thank You Letter cp Signatures: Dispatcher [employer] Hugo Ball MD MD cha Blanchard, Shelby, RN RN ss Urszula Ramirez RN RN ph Hugo Taylor PA PA cp Leal, Jahala RN jl7 Corrections: (The following items were deleted from the chart) 17:34 17:34 Home Meds: Unable to obtain; [facility]
[2024-01-28 00:52] VITALS: O2SAT 96
[2024-01-28 00:53] VITALS: BP 119/74; TEMP 98.1
--- NOTE | 2024-01-31 12:17 | EKG ---
Test Date: 2024-01-24 Test Time: 09:02:25 Datastage Developer: GAURI MEASUREMENT RESULTS: Intervals: Rate: 84 VT: 176 QRSD: 90 QT: 362 QTc: 427 [place]: P: 76 VT: 176 QRS: 86 T: 95 INTERPRETIVE STATEMENTS: Normal sinus rhythm Nonspecific ST abnormality Abnormal ECG Compared to ECG 03/21/2019 23:44:22 ST (T wave) deviation now present Incomplete right bundle-branch block no longer present Electronically Signed On 01-31-24 12:08:53 POSTPARTUM NURSE by James Yung
--- NOTE | 2024-02-01 10:09 | EKG ---
Test Date: 2024-01-27 Test Time: 17:39:46 Cupola Patcher Helper: IRAM MEASUREMENT RESULTS: Intervals: Rate: 63 WA: 160 QRSD: 90 QT: 366 QTc: 374 [place]: P: 40 WA: 160 QRS: 27 T: 68 INTERPRETIVE STATEMENTS: * Pediatric ECG analysis * Normal sinus rhythm with sinus arrhythmia Low voltage QRS Compared to ECG 01/24/2024 09:02:25 Low QRS voltage now present ST (T wave) deviation no longer present Electronically Signed On 02-01-24 10:07:29 GAMBLING MONITOR by James Yung
== END 2024-01-27 22:03 | disposition home or self-care (01) ==
LOC: ER 17:24
DX: R07.89 Other chest pain (principal)
CPT/HCPCS: 36415; 71045; 71275; 80048; 80076; 83735; 84484; 85025; 85379; 85610; 93005; 99284; Q9967